=== PATIENT | female | born 1990 | race Caucasian/White ===

== ENCOUNTER 2018-04-05 17:32 | Emergency (ER) | payer OTHER ==
[~2018-04-05] VITALS: Ht 165.1 cm; Wt 57.1 kg
[~2018-04-05 17:32] MED LIST: AMOXICILLIN875 MG PO; BENADRYL25 MG PO; IBUPROFEN 600600 M1; MEDROLDOSEPACK PO; TOBRADEX EYE DRO5 ML OTIC
[2018-04-05] MEDS ORDERED: PRENATAL PO (17:43)
[2018-04-05 18:14] LABS: ABSOLUTE EOSINOPHILS 0.2 thou/uL (0.0-0.7); ABSOLUTE MONOCYTES 0.5 thou/uL (0.0-1.2); ABSOLUTE NEUTROPHILS 8.8 thou/uL (1.6-8.1); BASOPHILS 0.4 %; EOSINOPHILS 1.5 %; HEMATOCRIT 35.5 % (37.0-47.0); LYMPHOCYTES 17.5 %; MCH 30.3 pg (26.0-34.0); MCHC 33.8 g/dL (28.0-37.0); MCV 89.8 fL (80.0-100.0); MONOCYTES 4.1 %; NUCLEATED RBCS 0 /100WBC; PLATELET COUNT* 253 thou/uL (150-400); POLYS 76.5 %; RBC 3.95 mil/uL (4.20-5.00); RDW-CV 13.3 % (10.5-14.5); WBC 11.5 thou/uL (4.0-11.0)
[2018-04-05 18:22] LABS: CALCIUM 8.2 mg/dL (8.5-10.1); CREATININE 0.6 mg/dL (0.6-1.3); POTASSIUM 3.5 mmol/L (3.5-5.1)
[2018-04-05 18:27] LABS: ALBUMIN 2.9 g/dL (3.4-5.0); TOTAL BILIRUBIN 0.6 mg/dL (<0.1-1.0); TOTAL PROTEIN 6.3 g/dL (6.4-8.2)
[2018-04-05 18:30] LABS: URINE BILIRUBIN NEGATIVE (Negative); URINE BLOOD NEGATIVE (Negative); URINE CLARITY CLEAR; URINE COLOR YELLOW; URINE GLUCOSE-RANDOM NEGATIVE (Negative); URINE KETONES TRACE (Negative); URINE LEUKOCYTES-REFLEX NEGATIVE (Negative); URINE NITRITE-REFLEX NEGATIVE (Negative); URINE PROTEIN NEGATIVE (Negative); URINE SPECIFIC GRAVITY >= 1.030 (1.005-1.030); URINE UROBILINOGEN 0.2 E.U./dl (0.2-1.0)
[2018-04-05] MEDS ORDERED: MAALOX ADVANCE355 ML PO (20:32)
[2018-04-05 20:48] VITALS: BP 99/62
== END 2018-04-05 20:54 | disposition home or self-care (01) ==
LOC: M.ERS 17:32
PROVIDERS: Nurse Practitioner Family
DX: O26.892 Other specified pregnancy related conditions, second trimester (principal); R10.13 Epigastric pain; Z3A.15 15 weeks gestation of pregnancy